=== PATIENT | male | born 1965 | race Caucasian/White ===

== ENCOUNTER 2021-07-01 19:00 | Emergency (ER) | payer OTHER ==
--- NOTE | 2021-07-01 20:31 | RAD REPORT ---
EXAM DESCRIPTION: RAD - Hip Right 2 View - 07/01/2021 8:24 pm CLINICAL HISTORY: PAIN COMPARISON: No comparisons FINDINGS: No acute fracture or dislocation is seen.
--- NOTE | 2021-07-01 20:31 | RAD REPORT ---
EXAM DESCRIPTION: RAD - Elbow Right 2 View - 07/01/2021 8:24 pm CLINICAL HISTORY: PAIN COMPARISON: No comparisons FINDINGS: Small acromial spur is noted. Soft tissue injury is seen along the medial aspect of the el bow with debris present. No acute fracture or dislocation evident.
--- NOTE | 2021-07-01 21:03 | RAD REPORT ---
EXAM DESCRIPTION: CT - Spine Lumbar Wo Con - 07/01/2021 8:40 pm CLINICAL HISTORY: Radiculopathy. right flank pain trauma COMPARISON: No comparisons TECHNIQUE: Axial noncontrast CT imaging of the lumbar spine was performed with coronal and sagittal re-formatted images. All CT scans are performed using dose optimization technique as appropriate and may include automated exposure control or mA/KV adjustment according to patient size. FINDINGS: No acute lumbar spine fracture seen. Aggressive pattern. Mild spondylosis is seen upper sam mbar levels. Paraspinal tissues are normal in thickness. No paraspinal abscess or hematoma seen. Chronic bilateral spondylolysis L5-S1. IMPRESSION: No acute lumbar spine abnormality seen. Mild lumbar degenerative changes with chronic spondylolysis at L5-S1 bilaterally.
--- NOTE | 2021-07-01 21:10 | RAD REPORT ---
EXAM DESCRIPTION: CT - Thorax Wo Con CLINICAL HISTORY: Chest pain trauma right lateral ;Pain COMPARISON: No comparisons FINDINGS: The lungs are clear. No pleural thickening or pleural effusion. No pneumothorax. No axillary, mediastinal or hilar adenopathy. Thin lucency in the right clavicle may represent a nutrient vessel or a nondisplaced fracture. Sugges t correlation with clinical point tenderness along the right clavicle. Fracture of the posterior right third, fourth ribs noted without displacement. Lateral fracture also seen involving the right lateral fourth, fifth ribs, nondisplaced. All CT scans are performed using dose optimization technique as appropriate and may include automated exposure control or mA/KV adjustment according to patient size. IMPRESSION: Multiple right-sided rib fractures as described above, without pneumothorax or hemothora x.
[2021-07-01] MEDS ORDERED: KETOROLAC 30 MG/ML INJ ONE (21:22)
--- NOTE | 2021-07-01 21:30 | EDPHYS ---
Physician Documentation [facility] Name: Magdi Conway Age: 55 yrs Sex: Male : 1965 Arrival Date: 07/01/2021 Time: 19:18 Bed 25 Private MD: ED Physician Viraj Elliott HPI: 07/01 20:22 This 55 yrs old Male presents to ER via Ambulatory with complaints of Fell ma2 from 4 feet ladder, has right elbow abrasion,. 20:22 The patient or guardian reports an abrasion. Onset: The symptoms/episode began/occurred ma2 suddenly, 1 hour(s) ago. Associated signs and symptoms: Pertinent negatives: fever, numbness distally, tingling distally. Severity of symptoms: At their worst the symptoms were mild, in the emergency department the symptoms are unchanged. The patient has not experienced similar symptoms in the past. Historical: - Allergies: 19:24 No Known Allergies; bs2 - Home Meds: 19:24 None [Active]; bs2 - PMHx: 19:24 None; bs2 - PSHx: 19:24 None; bs2 - Immunization history:: Adult Immunizations not up to date, Client reports having NOT received the Covid vaccine. - Social history:: Smoking status: Patient denies any tobacco usage or history of. Patient uses alcohol, occasionally. Patient/guardian denies using alcohol, street drugs, The patient lives with family. - Family history:: not pertinent. ROS: 20:22 Constitutional: Negative for fever, chills, and weight loss. ma2 20:22 All other systems are negative. Exam: 20:22 Constitutional: This is a well developed, well nourished patient who is awake, alert, ma2 and in no acute distress. Head/Face: Normocephalic, atraumatic. Eyes: Pupils equal round and reactive to light, extra-ocular motions intact. Lids and lashes normal. Conjunctiva and sclera are non-icteric and not injected. Cornea within normal limits. Periorbital areas with no swelling, redness, or edema. ENT: Nares patent. No nasal discharge, no septal abnormalities noted. Tympanic membranes are normal and external auditory canals are clear. Oropharynx with no redness, swelling, or masses, exudates, or evidence of obstruction, uvula midline. Mucous membranes moist. Neck: Trachea midline, no thyromegaly or masses palpated, and no cervical lymphadenopathy. Supple, full range of motion without nuchal rigidity, or vertebral point tenderness. No Meningismus. Chest/axilla: Chest wall tenderness over ribs 3 through 6, otherwise normal chest wall appearance and motion. Nontender with no deformity. No lesions are appreciated. Cardiovascular: Regular rate and rhythm with a normal S1 and S2. No gallops, murmurs, or rubs. Normal PMI, no JVD. No pulse deficits. Respiratory: Lungs have equal breath sounds bilaterally, clear to auscultation and percussion. No rales, rhonchi or wheezes noted. No increased work of breathing, no retractions or nasal flaring. Abdomen/GI: Soft, non-tender, with normal bowel sounds. No distension or tympany. No guarding or rebound. No evidence of tenderness throughout. Back: No spinal tenderness. No costovertebral tenderness. Full range of motion. Skin: Warm, dry with normal turgor. Normal color with no rashes, no lesions, and no evidence of cellulitis. MS/ Extremity: Right elbow pulses equallateral abrasijoint is within normal limits able to range it fully no restriction, no effusion. Pn, however , no cyanosis. Neurovascular intact. Full, normal range of motion. Neuro: Awake and alert, GCS 15, oriented to person, place, time, and situation. Cranial nerves II-XII grossly intact. Motor strength 5/5 in all extremities. Sensory grossly intact. Cerebellar exam normal. Normal gait. Vital Signs: 19:24 BP 125 / 83; Pulse 82; Resp 19; Temp 98.6(O); Pulse Ox 99% ; Weight 117.93 kg; Height 5 bs2 ft. 10 in. (177.80 cm); Pain 7/10; 21:16 BP 142 / 84; Pulse 89; Resp 18; Temp 98.2; Pulse Ox 99% on R/A; Pain 6/10; ms4 19:24 Body Mass Index 37.31 (117.93 kg, 177.80 cm) bs2 MDM: 19:32 Patient medically screened. ma2 20:22 Differential diagnosis: closed fracture, contusion, abrasion, tendonitis. ma2 21:28 Data reviewed: vital signs, nurses notes. Counseling: I had a detailed discussion with ma2 the patient and/or guardian regarding: the historical points, exam findings, and any diagnostic results supporting the discharge/admit diagnosis, the presence of at least one elevated blood pressure reading (>120/80) during this emergency department visit, the need for outpatient follow up. Response to treatment: the patient's symptoms have markedly improved after treatment. ED course: Has multiple or the ribs fracture on the right lateral, fourth fifth and third, I offered admission. However he feels pain under control, and would like to be discharged given return precaution, he understand that he need to return to ER for any shortness of breath cough or fever.. 07/01 19:51 Order name: CT Chest Wo Con; Complete Time: 21:25 ma2 07/01 19:51 Order name: CT Lumbar Spine Wo Con; Complete Time: 21:25 ma2 07/01 19:51 Order name: Hip Right 2 View XRAY; Complete Time: 20:38 ma2 07/01 19:51 Order name: Elbow Right 2 View XRAY; Complete Time: 20:38 ma2 07/01 19:52 Order name: Wound dressing; Complete Time: 21:15 ma2 Administered Medications: 21:15 Drug: Ketorolac 30 mg Route: IVP; Site: left antecubital; ms4 21:31 Drug: Tetanus-Diphtheria Toxoid Adult 0.5 ml {Printer Slotter Feeder: Needl. Exp: ms4 12/11/2022. Lot #: [id number]. } Route: IM; Site: right deltoid; Disposition Summary: 07/01/21 21:30 Discharge Ordered Location: Home ma2 Condition: Stable ma2 Diagnosis - Multiple fractures of ribs, right side - 3rd, 4th and 5th ma2 Followup: ma2 - With: Private Physician - When: Tomorrow - Reason: If symptoms return, Continuance of care Discharge Instructions: - Discharge Summary Sheet ma2 - Rib Fracture, [id number] ma2 Forms: - Medication Reconciliation Form ma2 - Thank You Letter ma2 - Antibiotic Education ma2 - Prescription Opioid Use ma2 Prescriptions: - Cyclobenzaprine 10 mg Oral Tablet - take 1 tablet by ORAL route every 8 hours As needed; 30 tablet; Refills: 0, ma2 Product Selection Permitted - Diclofenac Sodium 75 mg Oral tablet,delayed release (DR/EC) - take 1 tablet by ORAL route 2 times per day; 60 tablet; Refills: 0, Product ma2 Selection Permitted Signatures: Dispatcher [employer] Viraj Mueller MD MD ma2 Rica Francis RN RN bs2 Lori Rehman RN RN ms4
--- NOTE | 2021-07-01 21:30 | ER ---
Nurse's Notes [facility] Name: Magdi Conway Age: 55 yrs Sex: Male : 1965 Arrival Date: 07/01/2021 Time: 19:18 Bed 25 Private MD: Diagnosis: Multiple fractures of ribs, right side-3rd, 4th and 5th Presentation: 07/01 19:23 Chief complaint: Patient states: fall from 4ft off ladder, pain to left arm and ribs bs2 landed on rocks, NO LOC. Coronavirus screen: At this time, the client does not indicate any symptoms associated with coronavirus-19. Ebola Screen: No symptoms or risks identified at this time. Initial Sepsis Screen: Does the patient meet any 2 criteria? No. Patient's initial sepsis screen is negative. Does the patient have a suspected source of infection? No. Patient's initial sepsis screen is negative. Risk Assessment: Do you want to hurt yourself or someone else? Patient reports no desire to harm self or others. Onset of symptoms was July 01, 2021. 19:23 Method Of Arrival: Ambulatory bs2 19:23 Acuity: DEBRA 3 bs2 Triage Assessment: 19:24 General: Appears in no apparent distress. uncomfortable, obese, well groomed, well bs2 developed, Behavior is calm, cooperative, appropriate for age. Pain: Complains of pain in right lateral anterior chest Pain does not radiate. Pain currently is 7 out of 10 on a pain scale. Historical: - Allergies: 19:24 No Known Allergies; bs2 - Home Meds: 19:24 None [Active]; bs2 - PMHx: 19:24 None; bs2 - PSHx: 19:24 None; bs2 - Immunization history:: Adult Immunizations not up to date, Client reports having NOT received the Covid vaccine. - Social history:: Smoking status: Patient denies any tobacco usage or history of. Patient uses alcohol, occasionally. Patient/guardian denies using alcohol, street drugs, The patient lives with family. - Family history:: not pertinent. Screenin:38 Abuse screen: Denies threats or abuse. Denies injuries from another. Nutritional ms4 screening: No deficits noted. Tuberculosis screening: No symptoms or risk factors identified. Fall Risk Fall in past 12 months (25 points). No secondary diagnosis (0 pts). IV access (20 points). Ambulatory Aid- None/Bed Rest/Nurse Assist (0 pts). Gait- Normal/Bed Rest/Wheelchair (0 pts) Mental Status- Oriented to own ability (0 pts). Total Mcintosh Fall Scale indicates No Risk (0-24 pts). Assessment: 19:37 Pain: Complains of pain in chest and right lateral anterior chest Pain radiates to ms4 back. Neuro: No deficits noted. Cardiovascular: Reports chest pain, shortness of breath. Respiratory: Reports shortness of breath on exertion. Musculoskeletal: Reports pain in right elbow and right hip. 21:16 Reassessment: Patient appears in no apparent distress at this time. No changes from ms4 previously documented assessment. Patient and/or family updated on plan of care and expected duration. Pain level reassessed. Patient is alert, oriented x 3, equal unlabored respirations, skin warm/dry/pink. Vital Signs: 19:24 BP 125 / 83; Pulse 82; Resp 19; Temp 98.6(O); Pulse Ox 99% ; Weight 117.93 kg; Height 5 bs2 ft. 10 in. (177.80 cm); Pain 7/10; 21:16 BP 142 / 84; Pulse 89; Resp 18; Temp 98.2; Pulse Ox 99% on R/A; Pain 6/10; ms4 19:24 Body Mass Index 37.31 (117.93 kg, 177.80 cm) bs2 ED Course: 19:18 Patient arrived in ED. bp1 19:24 Triage completed. bs2 19:24 Arm band placed on left wrist. bs2 19:32 Viraj Elliott MD is Attending Physician. ma2 19:38 No provider procedures requiring assistance completed. ms4 20:24 Hip Right 2 View XRAY In Process Unspecified. EDMS 20:24 Elbow Right 2 View XRAY In Process Unspecified. EDMS 20:35 CT Lumbar Spine Wo Con Sent. ms4 20:35 CT Chest Wo Con Sent. ms4 20:40 CT Chest Wo Con In Process Unspecified. EDMS 20:40 CT Lumbar Spine Wo Con In Process Unspecified. EDMS 21:40 IV discontinued, intact, bleeding controlled. ms4 21:41 Patient has correct armband on for positive identification. ms4 Administered Medications: 21:15 Drug: Ketorolac 30 mg Route: IVP; Site: left antecubital; ms4 21:31 Drug: Tetanus-Diphtheria Toxoid Adult 0.5 ml {Battery Filler: Yoics. Exp: ms4 12/11/2022. Lot #: [id number]. } Route: IM; Site: right deltoid; Outcome: 21:30 Discharge ordered by . [email or web address] 21:41 Discharged to home ambulatory. ms4 21:41 Condition: stable 21:41 Discharge instructions given to patient, Instructed on discharge instructions, follow up and referral plans. 21:41 Patient left the ED. ms4 Signatures: Dispatcher [employer] EDMS Viraj Elliott MD MD ma2 Mary Gipson Bridget RN RN bs2 Lori Rehman RN RN ms4
[2021-07-01] MEDS ORDERED: TETANUS & DIPHTHERIA TOX,ADULT 0.5 ML VIAL ONE (21:52)
[2021-07-01 21:57] VITALS: O2SAT 99
[2021-07-01 21:59] VITALS: BP 142/84; TEMP 98.2
== END 2021-07-01 21:41 | disposition home or self-care (01) ==
LOC: ER 19:00
DX: S22.41XA Multiple fractures of ribs, right side, initial encounter for closed fracture (principal); W11.XXXA Fall on and from ladder, initial encounter; Z23 Encounter for immunization
CPT/HCPCS: 71250; 72131; 90471; 90714; 96374; 99283